=== PATIENT | female | born 1960 | race African-American/Black ===

== ENCOUNTER 2021-06-03 17:07 | Emergency (ER) | payer OTHER ==
[~2021-06-03] VITALS: Ht 167.6 cm; Wt 87.0 kg
[2021-06-03 17:15] VITALS: BP 164/100
[2021-06-03] MEDS ORDERED: IBUPROFEN 400MG TABLET PO ONE (21:00)
[2021-06-03 21:02] LABS: CLARITY URINE CLEAR (CLEAR); COLOR URINE YELLOW (YELLOW); KETONES URINE NEGATIVE (NEGATIVE); LEUKOCYTE ESTERASE URINE 2+ (NEGATIVE); NITRITE URINE NEGATIVE (NEGATIVE); OCCULT BLOOD URINE 2+ (NEGATIVE); PH URINE 6.5 (4.5-8.0); PROTEIN URINE NEGATIVE (NEGATIVE); SPECIFIC GRAVITY URINE 1.003 (1.005-1.030); UROBILINOGEN URINE 0.2 E.U./dL (0.2-1.0)
[2021-06-03] MEDS ORDERED: IBUP-2028 MT (21:04)
[2021-06-03] MEDS ORDERED: CEPH500C2 MT (21:04)
== END 2021-06-03 22:48 | disposition home or self-care (01) ==
LOC: ER 17:07
DX: N39.0 Urinary tract infection, site not specified (principal); I11.0 Hypertensive heart disease with heart failure; I50.9 Heart failure, unspecified
CPT/HCPCS: 81003; 87077; 87186; 99283